=== PATIENT | female | born 1995 | race Two or more races ===

== ENCOUNTER 2021-01-25 00:06 | Inpatient (IN) | payer MEDICAID, OTHER ==
[2021-01-25] MEDS ORDERED: Nalbuphine 10 MG/1 ML Vial IVPUSH PRN (03:07)
[2021-01-25] MEDS ORDERED: Sodium Chloride 0.9% 10 ML Syringe FLUSH PRN (03:07)
[2021-01-25] MEDS ORDERED: Ondansetron 4 MG/2 ML SDV IVPUSH PRN (03:07)
[2021-01-25] MEDS ORDERED: Oxytocin/Lactated Ringers 10 UNIT/1,000 ML BAG IV SCH ×3 (03:15→07:45)
[2021-01-25] MEDS ORDERED: Terbutaline 1 MG/ML SDV ONE (07:12)
[2021-01-25] MEDS ORDERED: Terbutaline 1 MG/ML SDV SUBCUT ONE (07:13)
[2021-01-25] MEDS: Lactated Ringers 1,000 ML IV SCH ×2 (07:36→12:43)
[2021-01-25] MEDS ORDERED: diphenhydrAMINE 50 MG/ML SDV IVPUSH PRN (07:42)
[2021-01-25] MEDS ORDERED: ePHEDrine 50 MG/ML SDV IVPUSH PRN (07:42)
[2021-01-25] MEDS ORDERED: Bupivacaine/fentaNYL/NS 100 ML Bag EPIDUR PRN (07:42)
[2021-01-25] MEDS ORDERED: fentaNYL 100 MCG/2 ML SDV EPIDUR PRN (07:42)
--- NOTE | 2021-01-25 07:54 | PCM.PRNOTE ---
- Free Text/Narrative Note: PROCEDURE NOTE Procedure Date: 01/25/2021 Pre-operative Diagnosis: 1. at 39 0/7 wks 2. Transverse presentation 3. Gestational HTN Post-operative Diagnosis: 1. As above s/p successful external cephalic version Anesthesia: None Description of Operation/Procedure: The risks, benefits, indications, potential complications, and alternatives were explained to the patient and informed consent obtained. Patient was placed in the supine position. Ultrasound was used to confirm complete breech presentation and appropriate JEAN PIERRE. Terbutaline 0.25 mg subcutaneous was given. Hands were placed on the patient's abdomen. The breech was elevated out of the pelvis while counterclockwise traction was applied to the head. Ultrasound confirmed cephalic presentation as well as cardiac activity. The patient tolerated the procedure well. Complications: The patient tolerated the procedure well and no complications were noted. Plan: 1. Begin IOL for gestational HTN. Pitocin with AROM as able 2. Sign out patient to Dr. Marcellus Puente MD
--- NOTE | 2021-01-25 08:10 | PCM.LDHP ---
<So Breaux - Last Filed: 01/25/21 08:45> L&D History of Present Illness - General Date of Service: 01/25/21 Admit Problem/Dx: Patient Status Order with Admit Dx/Problem 01/25/21 00:22 Patient Status [ADT] Routine 01/25/21 03:07 Patient Status [ADT] Routine Admission Diagnosis/Problem Admission Diagnosis/Problem Source of Information: Patient History Limitations: Reports: No Limitations - History of Present Illness Introduction:: Patient is a 25 year old GBS - O+ x 1 who present today at 39-0 weeks gestational age (MIESHA 02/01/21) for evaluation of labor. She reports some contractions but denies vaginal bleeding or leaking of fluid. She reports good movement. Present Illness Comments:: Lynne Lau is a GBS- O+ 25 year old x 1 female at 39-0 weeks gestation age (MIESHA 02/01/21) by 19 week US and LMP who presents today for evaluation of labor. Patient reports a history of seasonal allergies. Patient received routine care with Dr. Mace. No other known complications during her . Her blood pressures remained elevated (130s/90s) during her OB Triage and the decision was to admit for induction/augmentation of labor. She denied any headaches or changes in her vision. She received Tdap vaccine 11/17/20. She declined Flu Vaccine OBGYN History 04/13/15: of male infant weighing 6 lbs 4ounces at 40 weeks - Jonathon Jr 04/30/16: of male weighing 6 lbs 8 ounces at 40 weeks - Denis 05/03/18: NSD of female weighing 6 lbs 4 ounces at 40 weeks - Valerie G4: current labs: Blood type:O+ Antibody screen: Negative Rubella status: Immune Hepatitis B surface antigen: negative RPR: negative HIV: negative Gonorrhea: Negative Chlamydia: negative Anatomy US: Harvey IUP with normal growth, JEAN PIERRE, placental location and anatomy One hour glucose tolerance test: 139, Three hour: 97, 129, 123, 107 Second trimester hemoglobin: 13.3 Platelets: 257,000 GBS status: negative - Related Data Allergies/Adverse Reactions: Allergies Allergy/AdvReac Type Severity Reaction Status Date / Time No Known Allergies Allergy Verified 01/25/21 00:56 Past Medical History HEENT History: Reports: Allergic Rhinitis [employer] History: Reports: Social & Family History - Tobacco Use Tobacco Use Status *Q: Never Tobacco User Second Hand Smoke Exposure: No - Alcohol Use Alcohol Use History: No - Recreational Drug Use Recreational Drug Use: No H&P Review of Systems - Review of Systems: Review Of Systems: See Below General: Reports: No Symptoms HEENT: Reports: No Symptoms Pulmonary: Reports: No Symptoms Cardiovascular: Reports: No Symptoms Gastrointestinal: Reports: No Symptoms Genitourinary: Reports: No Symptoms Musculoskeletal: Reports: No Symptoms Skin: Reports: No Symptoms Psychiatric: Reports: No Symptoms Neurological: Reports: No Symptoms L&D Exam - Exam Exam: See Below - Vital Signs Vital Signs: Last Vital Signs Temp 98.7 F 01/25/21 03:07 Pulse 93 01/25/21 03:07 Resp 16 01/25/21 03:07 BP 136/91 H 01/25/21 03:07 Pulse Ox Weight: 211 lb - OB Specific Contraction Intensity: Mild Movement: Active Heart Tones: Present Presentation: Oblique - Temple Score Temple Score Cervix Position: Posterior Temple Score Dilation: 1-2 cm - Exam General: Alert, Oriented HEENT: Conjunctiva Clear, EOMI Lungs: Clear to Auscultation, Normal Respiratory Effort Cardiovascular: Regular Rate, Regular Rhythm GI/Abdominal Exam: Normal Bowel Sounds, Soft, Non-Tender Extremities: Normal Inspection, No Pedal Edema, Normal Capillary Refill Skin: Warm, Dry, Intact Psychiatric: Alert, Normal Affect, Normal Mood - Patient Data Lab Results Last 24 hrs: Laboratory Results - last 24 hr 01/25/21 01/25/21 01/25/21 Range/Units 03:28 03:28 04:00 WBC 6.84 (3.98-10.04) K/mm3 RBC 4.16 (3.98-5.22) M/mm3 Hgb 10.9 L (11.2-15.7) gm/dl Hct 34.2 (34.1-44.9) % MCV 82.2 (79.4-94.8) fl MCH 26.2 (25.6-32.2) pg MCHC 31.9 L (32.2-35.5) g/dl RDW Std Deviation 44.3 (36.4-46.3) fL Plt Count 211 (182-369) K/mm3 MPV 10.7 (9.4-12.3) fl Neut % (Auto) 65.6 (34.0-71.1) % Lymph % (Auto) 28.2 (19.3-51.7) % Stone % (Auto) 5.6 (4.7-12.5) % Eos % (Auto) 0.4 L (0.7-5.8) Baso % (Auto) 0.1 (0.1-1.2) % Neut # (Auto) 4.48 (1.56-6.13) K/mm3 Lymph # (Auto) 1.93 (1.18-3.74) K/mm3 Stone # (Auto) 0.38 H (0.24-0.36) K/mm3 Eos # (Auto) 0.03 L (0.04-0.36) K/mm3 Baso # (Auto) 0.01 (0.01-0.08) K/mm3 AST 15 (15-37) U/L ALT 17 (14-59) U/L Ur Random Creatinine (30.0-125.0) mg/dL U Random Total Protein (0.0-11.8) mg/dL Protein/Creatinin Ratio (0-149) mg/g SARS-CoV-2 RNA (CARL) Negative (NEGATIVE) 01/25/21 Range/Units 04:00 WBC (3.98-10.04) K/mm3 RBC (3.98-5.22) M/mm3 Hgb (11.2-15.7) gm/dl Hct (34.1-44.9) % MCV (79.4-94.8) fl MCH (25.6-32.2) pg MCHC (32.2-35.5) g/dl RDW Std Deviation (36.4-46.3) fL Plt Count (182-369) K/mm3 MPV (9.4-12.3) fl Neut % (Auto) (34.0-71.1) % Lymph % (Auto) (19.3-51.7) % Stone % (Auto) (4.7-12.5) % Eos % (Auto) (0.7-5.8) Baso % (Auto) (0.1-1.2) % Neut # (Auto) (1.56-6.13) K/mm3 Lymph # (Auto) (1.18-3.74) K/mm3 Stone # (Auto) (0.24-0.36) K/mm3 Eos # (Auto) (0.04-0.36) K/mm3 Baso # (Auto) (0.01-0.08) K/mm3 AST (15-37) U/L ALT (14-59) U/L Ur Random Creatinine 163.6 H (30.0-125.0) mg/dL U Random Total Protein 45.9 H (0.0-11.8) mg/dL Protein/Creatinin Ratio 280.6 H (0-149) mg/g SARS-CoV-2 RNA (CARL) (NEGATIVE) Result Diagrams: 01/25/21 03:28 - Problem List (1) 39 weeks gestation of SNOMED Code(s): 00731531 ICD Code: Z3A.39 - 39 WEEKS GESTATION OF Status: Acute Current Visit: Yes (2) Elevated blood pressure affecting in third trimester, antepartum SNOMED Code(s): 55398972, 64994714, 340868480 ICD Code: O16.3 - UNSPECIFIED MATERNAL HYPERTENSION, THIRD TRIMESTER Status: Acute Current Visit: Yes (3) Breech presentation SNOMED Code(s): 6606615 ICD Code: O32.1XX0 - MATERNAL CARE FOR BREECH PRESENTATION, UNSP Status: Acute Current Visit: Yes Problem List Initiated/Reviewed/Updated: Yes Orders Last 24hrs: Active Orders 24 hr Category Date Time Status Patient Status [ADT] Routine ADT 01/25/21 03:07 Active Activity as Tolerated [RC] PFP Care 01/25/21 03:07 Active Communication Order [RC] ASDIRECTED Care 01/25/21 03:07 Active Communication Order [RC] ASDIRECTED Care 01/25/21 07:42 Active Cooling Warming Measures [RC] ASDIRECTED Care 01/25/21 07:42 Active Notify Provider [RC] ASDIRECTED Care 01/25/21 07:42 Active Notify Provider [RC] ASDIRECTED Care 01/25/21 07:43 Active Notify Provider [RC] PFP Care 01/25/21 03:07 Active Notify Provider [RC] PRN Care 01/25/21 03:07 Active Oxygen Therapy [RC] ASDIRECTED Care 01/25/21 07:42 Active Peripheral IV Care [RC] . DIRECTED Care 01/25/21 03:08 Active Pulse Oximetry [RC] ASDIRECTED Care 01/25/21 07:42 Active Pump Management, Intrathecal [RC] ASDIRECTED Care 01/25/21 03:08 Active Vital Signs [RC] PER UNIT ROUTINE Care 01/25/21 03:07 Active Vital Signs [RC] Q1H Care 01/25/21 07:42 Active Regular Diet [DIET] Diet 01/25/21 Breakfast Active RAPID PLASMA REAGIN,RPR [CHEM] Routine Lab 01/25/21 03:28 Received Bupivacaine/fentaNYL/NS [fentaNYL/Bupivacaine/NS 2 MCG- Med 01/25/21 07:42 Active 0.125% 100 ML] 100 ml EPIDUR ASDIRECTED PRN Lactated Ringers [Ringers, Lactated] 1,000 ml Med 01/25/21 03:15 Active IV ASDIRECTED Nalbuphine [Nubain] Med 01/25/21 03:07 Active 10 mg IVPUSH Q2H PRN Ondansetron [Zofran] Med 01/25/21 03:07 Active 4 mg IVPUSH Q4H PRN Oxytocin/Lactated Ringers [Pitocin in LR 10 Units/1,000 Med 01/25/21 03:15 Active ML] 10 unit in 1,000 ml IV .CONTINUOUS Oxytocin/Lactated Ringers [Pitocin in LR 10 Units/1,000 Med 01/25/21 03:15 Active ML] 10 unit in 1,000 ml IV TITRATE Oxytocin/Lactated Ringers [Pitocin in LR 10 Units/1,000 Med 01/25/21 07:45 Active ML] 10 unit in 1,000 ml IV TITRATE Sodium Chloride 0.9% [Saline Flush] Med 01/25/21 03:07 Active 10 ml FLUSH ASDIRECTED PRN diphenhydrAMINE [Benadryl] Med 01/25/21 07:42 Active 25 mg IVPUSH Q6H PRN ePHEDrine [ePHEDrine sulfate] Med 01/25/21 07:42 Active 5 mg IVPUSH ASDIRECTED PRN fentaNYL [Sublimaze] Med 01/25/21 07:42 Active 100 mcg EPIDUR Q3H PRN Electronic Heart Tones Ext w TOCO [WOMSER] Oth 01/25/21 03:07 Ordered Routine Electronic Heart Tones Internal [WOMSER] Per Unit Oth 01/25/21 03:07 Ordered Routine PIH Panel [OM.PC] Stat Oth 01/25/21 03:07 Ordered Peripheral IV Insertion Adult [OM.PC] Routine Oth 01/25/21 03:07 Ordered Resuscitation Status Routine Resus Stat 01/25/21 00:22 Ordered Medication Orders Diphenhydramine HCl (Diphenhydramine 50 Mg/Ml Sdv) 25 mg IVPUSH Q6H PRN PRN Reason: pruritis Ephedrine Sulfate (Ephedrine 50 Mg/Ml Sdv) 5 mg IVPUSH ASDIRECTED PRN PRN Reason: Hypotension Fentanyl (Fentanyl 100 Mcg/2 Ml Sdv) 100 mcg EPIDUR Q3H PRN PRN Reason: Pain Fentanyl/Bupivacaine HCl (Bupivacaine/Fentanyl/Ns 100 Ml Bag) 100 ml EPIDUR ASDIRECTED PRN PRN Reason: Pain Lactated Ringer's (Ringers, Lactated) 1,000 mls @ 100 mls/hr IV ASDIRECTED ANMOL Last Admin: 01/25/21 07:36 Dose: 100 mls/hr Documented by: GLADYS Oxytocin/Lactated Ringer's (Pitocin In Lr 10 Units/1,000 Ml) 10 unit in 1,000 mls @ 500 mls/hr IV .CONTINUOUS ANMOL Oxytocin/Lactated Ringer's (Pitocin In Lr 10 Units/1,000 Ml) 10 unit in 1,000 mls @ 12 mls/hr IV TITRATE ANMOL; Protocol Last Titration: 01/25/21 08:00 Dose: 4 munits/min, 24 mls/hr Documented by: Admin: 01/25/21 07:37 Dose: 2 munits/min, 12 mls/hr Documented by: GLADYS Oxytocin/Lactated Ringer's (Pitocin In Lr 10 Units/1,000 Ml) 10 unit in 1,000 mls @ 12 mls/hr IV TITRATE ANMOL; Protocol Nalbuphine HCl (Nalbuphine 10 Mg/1 Ml Vial) 10 mg IVPUSH Q2H PRN PRN Reason: Pain Ondansetron HCl (Ondansetron 4 Mg/2 Ml Sdv) 4 mg IVPUSH Q4H PRN PRN Reason: Nausea/Vomiting Sodium Chloride (Sodium Chloride 0.9% 10 Ml Syringe) 10 ml FLUSH ASDIRECTED PRN PRN Reason: Keep Vein Open Assessment/Plan Comment:: 25 year old at 39-0 weeks gestational age who presented for evaluation of labor and found to have elevated blood pressures and breech presentation. 1. O+ with negative antibody screen 2. Rubella Immune 3. GBS negative 6. Induction of labor with Pitocin, augmentation as indicated. Dr. Germain to AROM. 5. External cephalic version for oblique presentation to be done by Dr. Puente 7. Continuous monitoring 7. Monitor blood pressures, patient denies headache or changes in vision. BP has remained 130s/90s 7. Small amounts of regular diet 8. Does not desire an Epidural 9. Activity as tolerated 10. Anticipate vaginal delivery unless otherwise indicated 11. Plans to breastfeed <Lashell Puente - Last Filed: 01/25/21 12:23> L&D History of Present Illness - General Admit Problem/Dx: Patient Status Order with Admit Dx/Problem 01/25/21 00:22 Patient Status [ADT] Routine 01/25/21 03:07 Patient Status [ADT] Routine Admission Diagnosis/Problem Admission Diagnosis/Problem L&D Exam - Vital Signs Vital Signs: Last Vital Signs Temp 37.1 C 01/25/21 03:07 Pulse 93 01/25/21 03:07 Resp 16 01/25/21 03:07 BP 136/91 H 01/25/21 03:07 Pulse Ox - Patient Data Result Diagrams: 01/25/21 03:28 - Problem List (1) 39 weeks gestation of SNOMED Code(s): 50293201 ICD Code: Z3A.39 - 39 WEEKS GESTATION OF Status: Acute Current Visit: Yes (2) Breech presentation SNOMED Code(s): 7541432 ICD Code: O32.1XX0 - MATERNAL CARE FOR BREECH PRESENTATION, UNSP Status: Acute Current Visit: Yes Qualifiers: Fetus number: single or unspecified fetus Qualified Code(s): O32.1XX0 - Maternal care for breech presentation, not applicable or unspecified (3) Elevated blood pressure affecting in third trimester, antepartum SNOMED Code(s): 88966713, 04042927, 921601290 ICD Code: O16.3 - UNSPECIFIED MATERNAL HYPERTENSION, THIRD TRIMESTER Status: Acute Current Visit: Yes Problem List Initiated/Reviewed/Updated: Yes Assessment/Plan Comment:: I agree with the history and physical as documented above. woman at 39 0/7 wks presented with irregular contractions/early labor. No SVE change on exam, but with findings of mild range BP's requiring admission. Labs done and WNL. Further evaluation by MD noted transverse presentation. Reviewed with patient given only early labor and current presentation feel she would have high success with attempted ECV. Reviewed risks and benefits of procedure. She did desire trial. This was successful. See separate procedure note. Will now start IOL for gestational HTN. Pitocin and AROM when able. Patient to be signed out to care of Dr. Germain at this time. Lashell Puente MD <[place] Germain - Last Filed: 01/25/21 12:40> L&D History of Present Illness - General Admit Problem/Dx: Patient Status Order with Admit Dx/Problem 01/25/21 00:22 Patient Status [ADT] Routine 01/25/21 03:07 Patient Status [ADT] Routine Admission Diagnosis/Problem Admission Diagnosis/Problem L&D Exam - Vital Signs Vital Signs: Last Vital Signs Temp 98.7 F 01/25/21 03:07 Pulse 93 01/25/21 03:07 Resp 16 01/25/21 03:07 BP 136/91 H 01/25/21 03:07 Pulse Ox - Patient Data Lab Results Last 24 hrs: Laboratory Results - last 24 hr 01/25/21 01/25/21 01/25/21 Range/Units 03:28 03:28 04:00 WBC 6.84 (3.98-10.04) K/mm3 RBC 4.16 (3.98-5.22) M/mm3 Hgb 10.9 L (11.2-15.7) gm/dl Hct 34.2 (34.1-44.9) % MCV 82.2 (79.4-94.8) fl MCH 26.2 (25.6-32.2) pg MCHC 31.9 L (32.2-35.5) g/dl RDW Std Deviation 44.3 (36.4-46.3) fL Plt Count 211 (182-369) K/mm3 MPV 10.7 (9.4-12.3) fl Neut % (Auto) 65.6 (34.0-71.1) % Lymph % (Auto) 28.2 (19.3-51.7) % Stone % (Auto) 5.6 (4.7-12.5) % Eos % (Auto) 0.4 L (0.7-5.8) Baso % (Auto) 0.1 (0.1-1.2) % Neut # (Auto) 4.48 (1.56-6.13) K/mm3 Lymph # (Auto) 1.93 (1.18-3.74) K/mm3 Stone # (Auto) 0.38 H (0.24-0.36) K/mm3 Eos # (Auto) 0.03 L (0.04-0.36) K/mm3 Baso # (Auto) 0.01 (0.01-0.08) K/mm3 AST 15 (15-37) U/L ALT 17 (14-59) U/L Ur Random Creatinine (30.0-125.0) mg/dL U Random Total Protein (0.0-11.8) mg/dL Protein/Creatinin Ratio (0-149) mg/g SARS-CoV-2 RNA (CARL) Negative (NEGATIVE) 01/25/21 Range/Units 04:00 WBC (3.98-10.04) K/mm3 RBC (3.98-5.22) M/mm3 Hgb (11.2-15.7) gm/dl Hct (34.1-44.9) % MCV (79.4-94.8) fl MCH (25.6-32.2) pg MCHC (32.2-35.5) g/dl RDW Std Deviation (36.4-46.3) fL Plt Count (182-369) K/mm3 MPV (9.4-12.3) fl Neut % (Auto) (34.0-71.1) % Lymph % (Auto) (19.3-51.7) % Stone % (Auto) (4.7-12.5) % Eos % (Auto) (0.7-5.8) Baso % (Auto) (0.1-1.2) % Neut # (Auto) (1.56-6.13) K/mm3 Lymph # (Auto) (1.18-3.74) K/mm3 Stone # (Auto) (0.24-0.36) K/mm3 Eos # (Auto) (0.04-0.36) K/mm3 Baso # (Auto) (0.01-0.08) K/mm3 AST (15-37) U/L ALT (14-59) U/L Ur Random Creatinine 163.6 H (30.0-125.0) mg/dL U Random Total Protein 45.9 H (0.0-11.8) mg/dL Protein/Creatinin Ratio 280.6 H (0-149) mg/g SARS-CoV-2 RNA (CARL) (NEGATIVE) Result Diagrams: 01/25/21 03:28 - Problem List (1) 39 weeks gestation of SNOMED Code(s): 03172889 ICD Code: Z3A.39 - 39 WEEKS GESTATION OF Status: Acute Current Visit: Yes Problem List Initiated/Reviewed/Updated: No Orders Last 24hrs: Active Orders 24 hr Category Date Time Status Patient Status [ADT] Routine ADT 01/25/21 03:07 Active Activity as Tolerated [RC] PFP Care 01/25/21 03:07 Active Communication Order [RC] ASDIRECTED Care 01/25/21 03:07 Active Communication Order [RC] ASDIRECTED Care 01/25/21 07:42 Active Cooling Warming Measures [RC] ASDIRECTED Care 01/25/21 07:42 Active Notify Provider [RC] ASDIRECTED Care 01/25/21 07:42 Active Notify Provider [RC] ASDIRECTED Care 01/25/21 07:43 Active Notify Provider [RC] PFP Care 01/25/21 03:07 Active Notify Provider [RC] PRN Care 01/25/21 03:07 Active Oxygen Therapy [RC] ASDIRECTED Care 01/25/21 07:42 Active Peripheral IV Care [RC] . DIRECTED Care 01/25/21 03:08 Active Pulse Oximetry [RC] ASDIRECTED Care 01/25/21 07:42 Active Pump Management, Intrathecal [RC] ASDIRECTED Care 01/25/21 03:08 Active Vital Signs [RC] PER UNIT ROUTINE Care 01/25/21 03:07 Active Regular Diet [DIET] Diet 01/25/21 Breakfast Active RAPID PLASMA REAGIN,RPR [CHEM] Routine Lab 01/25/21 03:28 Received Bupivacaine/fentaNYL/NS [fentaNYL/Bupivacaine/NS 2 MCG- Med 01/25/21 07:42 Active 0.125% 100 ML] 100 ml EPIDUR ASDIRECTED PRN Lactated Ringers [Ringers, Lactated] 1,000 ml Med 01/25/21 03:15 Active IV ASDIRECTED Nalbuphine [Nubain] Med 01/25/21 03:07 Active 10 mg IVPUSH Q2H PRN Ondansetron [Zofran] Med 01/25/21 03:07 Active 4 mg IVPUSH Q4H PRN Oxytocin/Lactated Ringers [Pitocin in LR 10 Units/1,000 Med 01/25/21 03:15 Active ML] 10 unit in 1,000 ml IV .CONTINUOUS Oxytocin/Lactated Ringers [Pitocin in LR 10 Units/1,000 Med 01/25/21 03:15 Active ML] 10 unit in 1,000 ml IV TITRATE Oxytocin/Lactated Ringers [Pitocin in LR 10 Units/1,000 Med 01/25/21 07:45 Active ML] 10 unit in 1,000 ml IV TITRATE Sodium Chloride 0.9% [Saline Flush] Med 01/25/21 03:07 Active 10 ml FLUSH ASDIRECTED PRN diphenhydrAMINE [Benadryl] Med 01/25/21 07:42 Active 25 mg IVPUSH Q6H PRN ePHEDrine [ePHEDrine sulfate] Med 01/25/21 07:42 Active 5 mg IVPUSH ASDIRECTED PRN fentaNYL [Sublimaze] Med 01/25/21 07:42 Active 100 mcg EPIDUR Q3H PRN Electronic Heart Tones Ext w TOCO [WOMSER] Oth 01/25/21 03:07 Ordered Routine Electronic Heart Tones Internal [WOMSER] Per Unit Oth 01/25/21 03:07 Ordered Routine PIH Panel [OM.PC] Stat Oth 01/25/21 03:07 Ordered Peripheral IV Insertion Adult [OM.PC] Routine Oth 01/25/21 03:07 Ordered Resuscitation Status Routine Resus Stat 01/25/21 00:22 Ordered Medication Orders Diphenhydramine HCl (Diphenhydramine 50 Mg/Ml Sdv) 25 mg IVPUSH Q6H PRN PRN Reason: pruritis Ephedrine Sulfate (Ephedrine 50 Mg/Ml Sdv) 5 mg IVPUSH ASDIRECTED PRN PRN Reason: Hypotension Fentanyl (Fentanyl 100 Mcg/2 Ml Sdv) 100 mcg EPIDUR Q3H PRN PRN Reason: Pain Fentanyl/Bupivacaine HCl (Bupivacaine/Fentanyl/Ns 100 Ml Bag) 100 ml EPIDUR ASDIRECTED PRN PRN Reason: Pain Lactated Ringer's (Ringers, Lactated) 1,000 mls @ 100 mls/hr IV ASDIRECTED ANMOL Last Admin: 01/25/21 07:36 Dose: 100 mls/hr Documented by: GLADYS Oxytocin/Lactated Ringer's (Pitocin In Lr 10 Units/1,000 Ml) 10 unit in 1,000 mls @ 500 mls/hr IV .CONTINUOUS ANMOL Oxytocin/Lactated Ringer's (Pitocin In Lr 10 Units/1,000 Ml) 10 unit in 1,000 mls @ 12 mls/hr IV TITRATE ANMOL; Protocol Last Titration: 01/25/21 12:32 Dose: 14 munits/min, 84 mls/hr Documented by: Titration: 01/25/21 11:49 Dose: 15 munits/min, 90 mls/hr Documented by: Titration: 01/25/21 11:14 Dose: 13 munits/min, 78 mls/hr Documented by: Titration: 01/25/21 10:48 Dose: 11 munits/min, 66 mls/hr Documented by: Titration: 01/25/21 10:15 Dose: 9 munits/min, 54 mls/hr Documented by: Titration: 01/25/21 09:33 Dose: 7 munits/min, 42 mls/hr Documented by: Titration: 01/25/21 08:25 Dose: 6 munits/min, 36 mls/hr Documented by: Titration: 01/25/21 08:00 Dose: 4 munits/min, 24 mls/hr Documented by: Admin: 01/25/21 07:37 Dose: 2 munits/min, 12 mls/hr Documented by: GLADYS Oxytocin/Lactated Ringer's (Pitocin In Lr 10 Units/1,000 Ml) 10 unit in 1,000 mls @ 12 mls/hr IV TITRATE ANMOL; Protocol Nalbuphine HCl (Nalbuphine 10 Mg/1 Ml Vial) 10 mg IVPUSH Q2H PRN PRN Reason: Pain Ondansetron HCl (Ondansetron 4 Mg/2 Ml Sdv) 4 mg IVPUSH Q4H PRN PRN Reason: Nausea/Vomiting Sodium Chloride (Sodium Chloride 0.9% 10 Ml Syringe) 10 ml FLUSH ASDIRECTED PRN PRN Reason: Keep Vein Open Assessment/Plan Comment:: Patient seen and examined by me and discussed with student.
--- NOTE | 2021-01-25 08:34 | PCM.SN.2 ---
- Free Text/Narrative Note: Bedside ultrasound confirmed cephalic presentation. At 820 hours attempted amniotomy not successful cervix is 2 cm dilated cephalic presentation again confirmed after attempted amniotomy. Heart tones category 1 continue Pitocin. GBS negative. Will attempt amniotomy after patient has been on Pitocin for another hour or more.
[2021-01-25] MEDS ORDERED: Lidocaine 1% 50 ML MDV ONE (08:47)
--- NOTE | 2021-01-25 12:43 | PCM.SN.2 ---
- Free Text/Narrative Note: At 1012 attemped amniotomy, unsuccessful, cephalic presentation, 4, 50, soft, mid-position, -1 station
--- NOTE | 2021-01-25 13:32 | PCM.DEL ---
L & D Note - General Info Date of Service: 01/25/21 Mother's Due Date: 02/01/21 - Delivery Note Labor: Spontaneous, Augmented by ARM, Augmented by Oxytocin Delivery Outcome: Livebirth (Mild liveborn 01/25/2021 at 1310 hrs. ADI Apgars 8/9. Weight 3430 g/1 pounds 9.0 ounces of anesthesia, no lacerations.) Infant Delivery Method: Spontaneous Vaginal Delivery-Single Delivery Mode: Spontaneous Presentation: Oblique Nuchal Cord: None Prep: Povidone-Iodine (Betadine Anesthesia Type: None Amniotic Fluid Description: Clear Episiotomy Type: None Laceration: None Placenta: Intact, Spontaneous (Spontaneous delivery of the placenta 01/25/2021 at 1319 hrs. spontaneous eccentric cord insertion no missing cotyledons membranes examined no missing membrane remnants.) Estimated Blood Loss: 50 Resuscitation Needed: No [place]: Suctioned, Bulb Syringe, Stimulated, Warmed, [place] Used, Warmer Used Provider: [place] Germain Score 1 min: 8 Score 5 min: 9 Induction Criteria - Temple Score Temple Score Dilation: 1-2 cm Temple Score Effacement: 40-50% Temple Score Infant's Station: -1 ,0 Temple Score Consistency: Soft Temple Score Cervix Position: Posterior Temple Score Total: 6 Temple Score Presenting Part: Reports: Cephalic - Augmentation Estimated Pelvis: Reports: Adequate Weight Estimated:: Reports: AGA Reassuring Monitoring Strip: Yes Absence of Tachy Systole: Yes - General Info Date of Service: 01/25/21 Functional Status: Reports: Pain Controlled - Review of Systems General: Reports: No Symptoms HEENT: Reports: No Symptoms Pulmonary: Reports: No Symptoms Cardiovascular: Reports: No Symptoms Gastrointestinal: Reports: No Symptoms Genitourinary: Reports: No Symptoms Musculoskeletal: Reports: No Symptoms Skin: Reports: No Symptoms Neurological: Reports: No Symptoms Psychiatric: Reports: No Symptoms - Patient Data Vitals - Most Recent: Last Vital Signs Temp 98.7 F 01/25/21 03:07 Pulse 93 01/25/21 03:07 Resp 16 01/25/21 03:07 BP 136/91 H 01/25/21 03:07 Pulse Ox Weight - Most Recent: 211 lb Lab Results Last 24 Hours: Laboratory Results - last 24 hr 01/25/21 01/25/21 01/25/21 Range/Units 03:28 03:28 04:00 WBC 6.84 (3.98-10.04) K/mm3 RBC 4.16 (3.98-5.22) M/mm3 Hgb 10.9 L (11.2-15.7) gm/dl Hct 34.2 (34.1-44.9) % MCV 82.2 (79.4-94.8) fl MCH 26.2 (25.6-32.2) pg MCHC 31.9 L (32.2-35.5) g/dl RDW Std Deviation 44.3 (36.4-46.3) fL Plt Count 211 (182-369) K/mm3 MPV 10.7 (9.4-12.3) fl Neut % (Auto) 65.6 (34.0-71.1) % Lymph % (Auto) 28.2 (19.3-51.7) % [place] % (Auto) 5.6 (4.7-12.5) % Eos % (Auto) 0.4 L (0.7-5.8) Baso % (Auto) 0.1 (0.1-1.2) % Neut # (Auto) 4.48 (1.56-6.13) K/mm3 Lymph # (Auto) 1.93 (1.18-3.74) K/mm3 [place] # (Auto) 0.38 H (0.24-0.36) K/mm3 Eos # (Auto) 0.03 L (0.04-0.36) K/mm3 Baso # (Auto) 0.01 (0.01-0.08) K/mm3 AST 15 (15-37) U/L ALT 17 (14-59) U/L Ur Random Creatinine (30.0-125.0) mg/dL U Random Total Protein (0.0-11.8) mg/dL Protein/Creatinin Ratio (0-149) mg/g SARS-CoV-2 RNA (CARL) Negative (NEGATIVE) 01/25/21 Range/Units 04:00 WBC (3.98-10.04) K/mm3 RBC (3.98-5.22) M/mm3 Hgb (11.2-15.7) gm/dl Hct (34.1-44.9) % MCV (79.4-94.8) fl MCH (25.6-32.2) pg MCHC (32.2-35.5) g/dl RDW Std Deviation (36.4-46.3) fL Plt Count (182-369) K/mm3 MPV (9.4-12.3) fl Neut % (Auto) (34.0-71.1) % Lymph % (Auto) (19.3-51.7) % [place] % (Auto) (4.7-12.5) % Eos % (Auto) (0.7-5.8) Baso % (Auto) (0.1-1.2) % Neut # (Auto) (1.56-6.13) K/mm3 Lymph # (Auto) (1.18-3.74) K/mm3 [place] # (Auto) (0.24-0.36) K/mm3 Eos # (Auto) (0.04-0.36) K/mm3 Baso # (Auto) (0.01-0.08) K/mm3 AST (15-37) U/L ALT (14-59) U/L Ur Random Creatinine 163.6 H (30.0-125.0) mg/dL U Random Total Protein 45.9 H (0.0-11.8) mg/dL Protein/Creatinin Ratio 280.6 H (0-149) mg/g SARS-CoV-2 RNA (CARL) (NEGATIVE) Med Orders - Current: Current Medications Diphenhydramine HCl (Diphenhydramine 50 Mg/Ml Sdv) 25 mg IVPUSH Q6H PRN PRN Reason: pruritis Ephedrine Sulfate (Ephedrine 50 Mg/Ml Sdv) 5 mg IVPUSH ASDIRECTED PRN PRN Reason: Hypotension Fentanyl (Fentanyl 100 Mcg/2 Ml Sdv) 100 mcg EPIDUR Q3H PRN PRN Reason: Pain Fentanyl/Bupivacaine HCl (Bupivacaine/Fentanyl/Ns 100 Ml Bag) 100 ml EPIDUR ASDIRECTED PRN PRN Reason: Pain Lactated Ringer's (Ringers, Lactated) 1,000 mls @ 100 mls/hr IV ASDIRECTED [facility] Last Admin: 01/25/21 12:43 Dose: 100 mls/hr Documented by: Oxytocin/Lactated Ringer's (Pitocin In Lr 10 Units/1,000 Ml) 10 unit in 1,000 mls @ 500 mls/hr IV .CONTINUOUS ANMOL Oxytocin/Lactated Ringer's (Pitocin In Lr 10 Units/1,000 Ml) 10 unit in 1,000 mls @ 12 mls/hr IV TITRATE ANMOL; Protocol Last Titration: 01/25/21 12:32 Dose: 14 munits/min, 84 mls/hr Documented by: Oxytocin/Lactated Ringer's (Pitocin In Lr 10 Units/1,000 Ml) 10 unit in 1,000 mls @ 12 mls/hr IV TITRATE ANMOL; Protocol Nalbuphine HCl (Nalbuphine 10 Mg/1 Ml Vial) 10 mg IVPUSH Q2H PRN PRN Reason: Pain Ondansetron HCl (Ondansetron 4 Mg/2 Ml Sdv) 4 mg IVPUSH Q4H PRN PRN Reason: Nausea/Vomiting Sodium Chloride (Sodium Chloride 0.9% 10 Ml Syringe) 10 ml FLUSH ASDIRECTED PRN PRN Reason: Keep Vein Open Discontinued Medications Lidocaine HCl (Lidocaine 1% 50 Ml Mdv) Confirm Administered Dose 50 ml .ROUTE .STK-MED ONE Stop: 01/25/21 08:48 Terbutaline Sulfate (Terbutaline 1 Mg/Ml Sdv) 0.25 mg SUBCUT ONETIME ONE Stop: 01/25/21 07:14 Last Admin: 01/25/21 07:38 Dose: 0.25 mg Documented by: Terbutaline Sulfate (Terbutaline 1 Mg/Ml Sdv) Confirm Administered Dose 1 mg .ROUTE .STK-MED ONE Stop: 01/25/21 07:13 Last Admin: 01/25/21 09:34 Dose: Not Given Documented by: - Exam GI/Abdominal Exam: Soft, Non-Tender (Female) Exam: Normal External Exam Extremities: Normal Inspection, Normal Range of Motion, Non-Tender, No Pedal Edema, Normal Capillary Refill Skin: Warm, Dry, Intact Neurological: No New Focal Deficit Psy/Mental Status: Alert, Normal Affect, Normal Mood - Problem List & Annotations (1) 39 weeks gestation of SNOMED Code(s): 48733095 Code(s): Z3A.39 - 39 WEEKS GESTATION OF Status: Acute Current Visit: Yes (2) Normal delivery at term SNOMED Code(s): 05585805 Code(s): O80 - ENCOUNTER FOR FULL-TERM UNCOMPLICATED DELIVERY Status: Acute Current Visit: Yes - Problem List Review Problem List Initiated/Reviewed/Updated: No - Plan Plan:: Patient seen and examined by me and discussed with student.
[2021-01-25] MEDS ORDERED: Acetaminophen 325 MG Tab PO PRN (14:55)
[2021-01-25] MEDS ORDERED: Benzocaine/Menthol 20%-0.5% Spray 56 GM Canister TOP PRN (14:55)
[2021-01-25] MEDS ORDERED: Witch Hazel Medicated Pads 40/Jar TOP PRN (14:55)
[2021-01-25] MEDS ORDERED: Simethicone 80 MG Tab.Chew PO PRN (14:55)
[2021-01-25] MEDS: Ibuprofen 600 MG Tab PO PRN ×2 (16:41→21:18)
[2021-01-26] MEDS: Ibuprofen 600 MG Tab PO PRN (05:13)
--- NOTE | 2021-01-26 11:10 | PCM.DCSUM1 ---
Discharge Summary - Hospital Course Free Text/Narrative:: [place] [facility] L/D Delivery Note Patient Name: FELICE CHANEY Date of : 89 Patient Status: Inpatient Attending Provider: Lashell Puente Date: 01/25/21 13:26 Initialization Date: 01/25/21 13:26 L & D Note - General Info Date of Service: 01/25/21 Mother's Due Date: 02/01/21 - Delivery Note Labor: Spontaneous, Augmented by ARM, Augmented by Oxytocin Delivery Outcome: Livebirth (Mild liveborn 01/25/2021 at 1310 hrs. ADI Apgars 8/9. Weight 3430 g/1 pounds 9.0 ounces of anesthesia, no lacerations.) Delivery Method: Spontaneous Vaginal Delivery-Single Infant Delivery Mode: Spontaneous Presentation: Oblique Nuchal Cord: None Prep: Povidone-Iodine (Betadine Anesthesia Type: None Amniotic Fluid Description: Clear Episiotomy Type: None Laceration: None Placenta: Intact, Spontaneous (Spontaneous delivery of the placenta 01/25/2021 at 1319 hrs. spontaneous eccentric cord insertion no missing cot yledons membranes examined no missing membrane remnants.) Estimated Blood Loss: 50 Resuscitation Needed: No : Suctioned, Bulb Syringe, Stimulated, Warmed, [place] Used, Warmer Used Provider: [place] Germain Score 1 min: 8 Score 5 min: 9 Induction Criteria - Temple Score Temple Score Dilation: 1-2 cm Temple Score Effacement: 40-50% Temple Score Infant's Station: -1 ,0 Temple Score Consistency: Soft Temple Score Cervix Position: Posterior Temple Score Total: 6 Temple Score Presenting Part: Reports: Cephalic - Augmentation Estimated Pelvis: Reports: Adequate Weight Estimated:: Reports: AGA Reassuring Monitoring Strip: Yes Absence of Tachy Systole: Yes - General Info Date of Service: 01/25/21 Functional Status: Reports: Pain Controlled - Review of Systems General: Reports: No Symptoms HEENT: Reports: No Symptoms Pulmonary: Reports: No Symptoms Cardiovascular: Reports: No Symptoms Gastrointestinal: Reports: No Symptoms Genitourinary: Reports: No Symptoms Musculoskeletal: Reports: No Symptoms Skin: Reports: No Symptoms Neurological: Reports: No Symptoms Psychiatric: Reports: No Symptoms - Patient Data Vitals - Most Recent: Last Vital Signs Temp 98.7 F 01/25/21 03:07 Pulse 93 01/25/21 03:07 Resp 16 01/25/21 03:07 BP 136/91 H 01/25/21 03:07 Pulse Ox Weight - Most Recent: 211 lb Lab Results Last 24 Hours: Laboratory Results - last 24 hr 01/25/21 01/25/21 01/25/21 Range/Units 03:28 03:28 04:00 WBC 6.84 (3.98-10.04) K/mm3 RBC 4.16 (3.98-5.22) M/mm3 Hgb 10.9 L (11.2-15.7) gm/dl Hct 34.2 (34.1-44.9) % MCV 82.2 (79.4-94.8) fl MCH 26.2 (25.6-32.2) pg MCHC 31.9 L (32.2-35.5) g/dl RDW Std Deviation 44.3 (36.4-46.3) fL Plt Count 211 (182-369) K/mm3 MPV 10.7 (9.4-12.3) fl Neut % (Auto) 65.6 (34.0-71.1) % Lymph % (Auto) 28.2 (19.3-51.7) % [place] % (Auto) 5.6 (4.7-12.5) % Eos % (Auto) 0.4 L (0.7-5.8) Baso % (Auto) 0.1 (0.1-1.2) % Neut # (Auto) 4.48 (1.56-6.13) K/mm3 Lymph # (Auto) 1.93 (1.18-3.74) K/mm3 [place] # (Auto) 0.38 H (0.24-0.36) K/mm3 Eos # (Auto) 0.03 L (0.04-0.36) K/mm3 Baso # (Auto) 0.01 (0.01-0.08) K/mm3 AST 15 (15-37) U/L ALT 17 (14-59) U/L Ur Random Creatinine (30.0-125.0) mg/dL U Random Total Protein (0.0-11.8) mg/dL Protein/Creatinin Ratio (0-149) mg/g SARS-CoV-2 RNA (CARL) Negative (NEGATIVE) 01/25/21 Range/Units 04:00 WBC (3.98-10.04) K/mm3 RBC (3.98-5.22) M/mm3 Hgb (11.2-15.7) gm/dl Hct (34.1-44.9) % MCV (79.4-94.8) fl MCH (25.6-32.2) pg MCHC (32.2-35.5) g/dl RDW Std Deviation (36.4-46.3) fL Plt Count (182-369) K/mm3 MPV (9.4-12.3) fl Neut % (Auto) (34.0-71.1) % Lymph % (Auto) (19.3-51.7) % [place] % (Auto) (4.7-12.5) % Eos % (Auto) (0.7-5.8) Baso % (Auto) (0.1-1.2) % Neut # (Auto) (1.56-6.13) K/mm3 Lymph # (Auto) (1.18-3.74) K/mm3 [place] # (Auto) (0.24-0.36) K/mm3 Eos # (Auto) (0.04-0.36) K/mm3 Baso # (Auto) (0.01-0.08) K/mm3 AST (15-37) U/L ALT (14-59) U/L Ur Random Creatinine 163.6 H (30.0-125.0) mg/dL U Random Total Protein 45.9 H (0.0-11.8) mg/dL Protein/Creatinin Ratio 280.6 H (0-149) mg/g SARS-CoV-2 RNA (CARL) (NEGATIVE) Med Orders - Current: Current Medications Diphenhydramine HCl (Diphenhydramine 50 Mg/Ml Sdv) 25 mg IVPUSH Q6H PRN PRN Reason: pruritis Ephedrine Sulfate (Ephedrine 50 Mg/Ml Sdv) 5 mg IVPUSH ASDIRECTED PRN PRN Reason: Hypotension Fentanyl (Fentanyl 100 Mcg/2 Ml Sdv) 100 mcg EPIDUR Q3H PRN PRN Reason: Pain Fentanyl/Bupivacaine HCl (Bupivacaine/Fentanyl/Ns 100 Ml Bag) 100 ml EPIDUR ASDIRECTED PRN PRN Reason: Pain Lactated Ringer's (Ringers, Lactated) 1,000 mls @ 100 mls/hr IV ASDIRECTED ANMOL Last Admin: 01/25/21 12:43 Dose: 100 mls/hr Documented by: Oxytocin/Lactated Ringer's (Pitocin In Lr 10 Units/1,000 Ml) 10 unit in 1,000 mls @ 500 mls/hr IV .CONTINUOUS ANMOL Oxytocin/Lactated Ringer's (Pitocin In Lr 10 Units/1,000 Ml) 10 unit in 1,000 mls @ 12 mls/hr IV TITRATE ANMOL; Protocol Last Titration: 01/25/21 12:32 Dose: 14 munits/min, 84 mls/hr Documented by: Oxytocin/Lactated Ringer's (Pitocin In Lr 10 Units/1,000 Ml) 10 unit in 1,000 mls @ 12 mls/hr IV TITRATE ANMOL; Protocol Nalbuphine HCl (Nalbuphine 10 Mg/1 Ml Vial) 10 mg IVPUSH Q2H PRN PRN Reason: Pain Ondansetron HCl (Ondansetron 4 Mg/2 Ml Sdv) 4 mg IVPUSH Q4H PRN PRN Reason: Nausea/Vomiting Sodium Chloride (Sodium Chloride 0.9% 10 Ml Syringe) 10 ml FLUSH ASDIRECTED PRN PRN Reason: Keep Vein Open Discontinued Medications Lidocaine HCl (Lidocaine 1% 50 Ml Mdv) Confirm Administered Dose 50 ml .ROUTE .STK-MED ONE Stop: 01/25/21 08:48 Terbutaline Sulfate (Terbutaline 1 Mg/Ml Sdv) 0.25 mg SUBCUT ONETIME ONE Stop: 01/25/21 07:14 Last Admin: 01/25/21 07:38 Dose: 0.25 mg Documented by: Terbutaline Sulfate (Terbutaline 1 Mg/Ml Sdv) Confirm Administered Dose 1 mg .ROUTE .STK-MED ONE Stop: 01/25/21 07:13 Last Admin: 01/25/21 09:34 Dose: Not Given Documented by: - Exam GI/Abdominal Exam: Soft, Non-Tender (Female) Exam: Normal External Exam Extremities: Normal Inspection, Normal Range of Motion, Non-Tender, No Pedal Edema, Normal Capillary Refill Skin: Warm, Dry, Intact Neurological: No New Focal Deficit Psy/Mental Status: Alert, Normal Affect, Normal Mood - Problem List & Annotations (1) 39 weeks gestation of SNOMED Code(s): 35053827 Code(s): Z3A.39 - 39 WEEKS GESTATION OF Status: Acute Current Visit: Yes (2) Normal delivery at term SNOMED Code(s): 18315154 Code(s): O80 - ENCOUNTER FOR FULL-TERM UNCOMPLICATED DELIVERY Status: Acute Current Visit: Yes - Problem List Review Problem List Initiated/Reviewed/Updated: No - Plan Plan:: Patient seen and examined by me and discussed with student. HPI Initial Comments: [place] [facility] L/D Delivery Note Patient Name: FELICE CHANEY Date of : 89 Patient Status: Inpatient Attending Provider: Lashell Puente Date: 01/25/21 13:26 Initialization Date: 01/25/21 13:26 L & D Note - General Info Date of Service: 01/25/21 Mother's Due Date: 02/01/21 - Delivery Note Labor: Spontaneous, Augmented by ARM, Augmented by Oxytocin Delivery Outcome: Livebirth (Mild liveborn 01/25/2021 at 1310 hrs. ADI Apgars 8/9. Weight 3430 g/1 pounds 9.0 ounces of anesthesia, no lacerations.) Delivery Method: Spontaneous Vaginal Delivery-Single Delivery Mode: Spontaneous Presentation: Oblique Nuchal Cord: None Prep: Povidone-Iodine (Betadine Anesthesia Type: None Amniotic Fluid Description: Clear Episiotomy Type: None Laceration: None Placenta: Intact, Spontaneous (Spontaneous delivery of the placenta 01/25/2021 at 1319 hrs. spontaneous eccentric cord insertion no missing cotyledons membranes examined no missing membrane remnants.) Estimated Blood Loss: 50 Resuscitation Needed: No : Suctioned, Bulb Syringe, Stimulated, Warmed, [place] Used, Warmer Used Provider: [place] Germain Score 1 min: 8 Score 5 min: 9 Induction Criteria - Temple Score Temple Score Dilation: 1-2 cm Temple Score Effacement: 40-50% Temple Score 's Station: -1 ,0 Temple Score Consistency: Soft Temple Score Cervix Position: Posterior Temple Score Total: 6 Temple Score Presenting Part: Reports: Cephalic - Augmentation Estimated Pelvis: Reports: Adequate Weight Estimated:: Reports: AGA Reassuring Monitoring Strip: Yes Absence of Tachy Systole: Yes - General Info Date of Service: 01/25/21 Functional Status: Reports: Pain Controlled - Review of Systems General: Reports: No Symptoms HEENT: Reports: No Symptoms Pulmonary: Reports: No Symptoms Cardiovascular: Reports: No Symptoms Gastrointestinal: Reports: No Symptoms Genitourinary: Reports: No Symptoms Musculoskeletal: Reports: No Symptoms Skin: Reports: No Symptoms Neurological: Reports: No Symptoms Psychiatric: Reports: No Symptoms - Patient Data Vitals - Most Recent: Last Vital Signs Temp 98.7 F 01/25/21 03:07 Pulse 93 01/25/21 03:07 Resp 16 01/25/21 03:07 BP 136/91 H 01/25/21 03:07 Pulse Ox Weight - Most Recent: 211 lb Lab Results Last 24 Hours: Laboratory Results - last 24 hr 01/25/21 01/25/21 01/25/21 Range/Units 03:28 03:28 04:00 WBC 6.84 (3.98-10.04) K/mm3 RBC 4.16 (3.98-5.22) M/mm3 Hgb 10.9 L (11.2-15.7) gm/dl Hct 34.2 (34.1-44.9) % MCV 82.2 (79.4-94.8) fl MCH 26.2 (25.6-32.2) pg MCHC 31.9 L (32.2-35.5) g/dl RDW Std Deviation 44.3 (36.4-46.3) fL Plt Count 211 (182-369) K/mm3 MPV 10.7 (9.4-12.3) fl Neut % (Auto) 65.6 (34.0-71.1) % Lymph % (Auto) 28.2 (19.3-51.7) % [place] % (Auto) 5.6 (4.7-12.5) % Eos % (Auto) 0.4 L (0.7-5.8) Baso % (Auto) 0.1 (0.1-1.2) % Neut # (Auto) 4.48 (1.56-6.13) K/mm3 Lymph # (Auto) 1.93 (1.18-3.74) K/mm3 [place] # (Auto) 0.38 H (0.24-0.36) K/mm3 Eos # (Auto) 0.03 L (0.04-0.36) K/mm3 Baso # (Auto) 0.01 (0.01-0.08) K/mm3 AST 15 (15-37) U/L ALT 17 (14-59) U/L Ur Random Creatinine (30.0-125.0) mg/dL U Random Total Protein (0.0-11.8) mg/dL Protein/Creatinin Ratio (0-149) mg/g SARS-CoV-2 RNA (CARL) Negative (NEGATIVE) 01/25/21 Range/Units 04:00 WBC (3.98-10.04) K/mm3 RBC (3.98-5.22) M/mm3 Hgb (11.2-15.7) gm/dl Hct (34.1-44.9) % MCV (79.4-94.8) fl MCH (25.6-32.2) pg MCHC (32.2-35.5) g/dl RDW Std Deviation (36.4-46.3) fL Plt Count (182-369) K/mm3 MPV (9.4-12.3) fl Neut % (Auto) (34.0-71.1) % Lymph % (Auto) (19.3-51.7) % [place] % (Auto) (4.7-12.5) % Eos % (Auto) (0.7-5.8) Baso % (Auto) (0.1-1.2) % Neut # (Auto) (1.56-6.13) K/mm3 Lymph # (Auto) (1.18-3.74) K/mm3 [place] # (Auto) (0.24-0.36) K/mm3 Eos # (Auto) (0.04-0.36) K/mm3 Baso # (Auto) (0.01-0.08) K/mm3 AST (15-37) U/L ALT (14-59) U/L Ur Random Creatinine 163.6 H (30.0-125.0) mg/dL U Random Total Protein 45.9 H (0.0-11.8) mg/dL Protein/Creatinin Ratio 280.6 H (0-149) mg/g SARS-CoV-2 RNA (CARL) (NEGATIVE) Med Orders - Current: Current Medications Diphenhydramine HCl (Diphenhydramine 50 Mg/Ml Sdv) 25 mg IVPUSH Q6H PRN PRN Reason: pruritis Ephedrine Sulfate (Ephedrine 50 Mg/Ml Sdv) 5 mg IVPUSH ASDIRECTED PRN PRN Reason: Hypotension Fentanyl (Fentanyl 100 Mcg/2 Ml Sdv) 100 mcg EPIDUR Q3H PRN PRN Reason: Pain Fentanyl/Bupivacaine HCl (Bupivacaine/Fentanyl/Ns 100 Ml Bag) 100 ml EPIDUR ASDIRECTED PRN PRN Reason: Pain Lactated Ringer's (Ringers, Lactated) 1,000 mls @ 100 mls/hr IV ASDIRECTED ANMOL Last Admin: 01/25/21 12:43 Dose: 100 mls/hr Documented by: Oxytocin/Lactated Ringer's (Pitocin In Lr 10 Units/1,000 Ml) 10 unit in 1,000 mls @ 500 mls/hr IV .CONTINUOUS ANMOL Oxytocin/Lactated Ringer's (Pitocin In Lr 10 Units/1,000 Ml) 10 unit in 1,000 mls @ 12 mls/hr IV TITRATE ANMOL; Protocol Last Titration: 01/25/21 12:32 Dose: 14 munits/min, 84 mls/hr Documented by: Oxytocin/Lactated Ringer's (Pitocin In Lr 10 Units/1,000 Ml) 10 unit in 1,000 mls @ 12 mls/hr IV TITRATE ANMOL; Protocol Nalbuphine HCl (Nalbuphine 10 Mg/1 Ml Vial) 10 mg IVPUSH Q2H PRN PRN Reason: Pain Ondansetron HCl (Ondansetron 4 Mg/2 Ml Sdv) 4 mg IVPUSH Q4H PRN PRN Reason: Nausea/Vomiting Sodium Chloride (Sodium Chloride 0.9% 10 Ml Syringe) 10 ml FLUSH ASDIRECTED PRN PRN Reason: Keep Vein Open Discontinued Medications Lidocaine HCl (Lidocaine 1% 50 Ml Mdv) Confirm Administered Dose 50 ml .ROUTE .STK-MED ONE Stop: 01/25/21 08:48 Terbutaline Sulfate (Terbutaline 1 Mg/Ml Sdv) 0.25 mg SUBCUT ONETIME ONE Stop: 01/25/21 07:14 Last Admin: 01/25/21 07:38 Dose: 0.25 mg Documented by: Terbutaline Sulfate (Terbutaline 1 Mg/Ml Sdv) Confirm Administered Dose 1 mg .ROUTE .STK-MED ONE Stop: 01/25/21 07:13 Last Admin: 01/25/21 09:34 Dose: Not Given Documented by: - Exam GI/Abdominal Exam: Soft, Non-Tender (Female) Exam: Normal External Exam Extremities: Normal Inspection, Normal Range of Motion, Non-Tender, No Pedal Edema, Normal Capillary Refill Skin: Warm, Dry, Intact Neurological: No New Focal Deficit Psy/Mental Status: Alert, Normal Affect, Normal Mood - Problem List & Annotations (1) 39 weeks gestation of SNOMED Code(s): 37979360 Code(s): Z3A.39 - 39 WEEKS GESTATION OF Status: Acute Current Visit: Yes (2) Normal delivery at term SNOMED Code(s): 15825127 Code(s): O80 - ENCOUNTER FOR FULL-TERM UNCOMPLICATED DELIVERY Status: Acute Current Visit: Yes - Problem List Review Problem List Initiated/Reviewed/Updated: No - Plan Plan:: Patient seen and examined by me and discussed with student. Brief History: [facility] LIVE . L/D Delivery Note. Patient Name: Stone CHANEY Record Number: [id number]. Date of : [birth year]Patient Status: Inpatient. Attending Provider: Lashell Puentecount Number: [id number]. Date: 01/25/21 13:26Initialization Date: 01/25/21 13:26. L & D Note. - General Info. Date of Service: 01/25/21. Mother's Due Date: 02/01/21. - Delivery Note. Labor: Spontaneous, Augmented by ARM, Augmented by Oxytocin. Delivery Outcome: Livebirth (Mild liveborn 01/25/2021 at 1310 hrs. ADI Apgars 8/9. Weight 3430 g/1 pounds 9.0 ounces of anesthesia, no lacerations.). Infant Delivery Method: Spontaneous Vaginal Delivery-Single. Infant Delivery Mode: Spontaneous. Presentation: Oblique. Nuchal Cord: None. Prep: Povidone-Iodine (Betadine. Anesthesia Type: None. Amniotic Fluid Description: Clear. Episiotomy Type: None. Laceration: None. Placenta: Intact, Spontaneous (Spontaneous delivery of the placenta 01/25/2021 at 1319 hrs. spontaneous eccentric cord insertion no missing cotyledons membranes examined no missing membrane remnants.). Estimated Blood Loss: 50. Resuscitation Needed: No. [place]: Suctioned, Bulb Syringe, Stimulated, Warmed, [place] Used, Warmer Used. Provider: Montana Germain. Score 1 min: 8. Score 5 min: 9. Induction Criteria. - Temple Score. Temple Score Dilation: 1-2 cm. Temple Score Effacement: 40-50%. Temple Score Infant's Station: -1 ,0. Temple Score Consistency: Soft. Temple Score Cervix Position: Posterior. Temple Score Total: 6. Temple Score Presenting Part: Reports: Cephalic. - Augmentation. Estimated Pelvis: Reports: Adequate. Weight Estimated:: Reports: AGA. Reassuring Monitoring Strip: Yes. Absence of Tachy Systole: Yes. - General Info. Date of Service: 01/25/21. Functional Status: Reports: Pain Controlled. - Review of Systems. General: Reports: No Symptoms. HEENT: Reports: No Symptoms. Pulmonary: Reports: No Symptoms. Cardiovascular: Reports: No Symptoms. Gastrointestinal: Reports: No Symptoms. Genitourinary: Reports: No Symptoms. Musculoskeletal: Reports: No Symptoms. Skin: Reports: No Symptoms. Neurological: Reports: No Symptoms. Psychiatric: Reports: No Symptoms. - Patient Data. Vitals - Most Recent: Last Vital Signs. Temp 98.7 F 01/25/21 03:07. Pulse 93 01/25/21 03:07. Resp 16 01/25/21 03:07. BP 136/91 H 01/25/21 03:07. Pulse Ox. Weight - Most Recent: 211 lb. Lab Results Last 24 Hours: Laboratory Results - last 24 hr. 01/25/210301/25/21Range/Units. 03:2803:2804:00. WBC 6.84 (3.98-10.04) K/mm3. RBC 4.16 (3.98-5.22) M/mm3. Hgb 10.9 L (11.2-15.7) gm/dl. Hct 34.2 (34.1-44.9) %. MCV 82.2 (79.4-94.8) fl. MCH 26.2 (25.6-32.2) pg. MCHC 31.9 L (32.2-35.5) g/dl. RDW Std Deviation 44.3 (36.4-46.3) fL. Plt Count 211 (182-369) K/mm3. MPV 10.7 (9.4-12.3) fl. Neut % (Auto) 65.6 (34.0-71.1) %. Lymph % (Auto) 28.2 (19.3-51.7) %. [place] % (Auto) 5.6 (4.7-12.5) %. Eos % (Auto) 0.4 L (0.7- 5.8). Baso % (Auto) 0.1 (0.1-1.2) %. Neut # (Auto) 4.48 (1.56-6.13) K/mm3. Lymph # (Auto) 1.93 (1.18-3.74) K/mm3. [place] # (Auto) 0.38 H (0.24-0.36) K/mm3. Eos # (Auto) 0.03 L (0.04-0.36) K/mm3. Baso # (Auto) 0.01 (0.01-0.08) K/mm3. AST 15 (15-37) U/L. ALT 17 (14-59) U/L. Ur Random Creatinine (30.0- 125.0) mg/dL. U Random Total Protein (0.0-11.8) mg/dL. Protein/Creatinin Ratio (0-149) mg/g. SARS-CoV-2 RNA (CARL) Negative (NEGATIVE). 03/15/21Range/Units. 04:00. WBC (3.98-10.04) K/mm3. RBC (3.98-5.22) M/mm3. Hgb (11.2-15.7) gm/dl. Hct (34.1-44.9) %. MCV (79.4-94.8) fl. MCH (25.6- 32.2) pg. MCHC (32.2-35.5) g/dl. RDW Std Deviation (36.4-46.3) fL. Plt Count (182-369) K/mm3. MPV (9.4-12.3) fl. Neut % (Auto) (34.0-71.1) %. Lymph % (Auto) (19.3-51.7) %. [place] % (Auto) (4.7-12.5) %. Eos % (Auto) (0.7- 5.8). Baso % (Auto) (0.1-1.2) %. Neut # (Auto) (1.56-6.13) K/mm3. Lymph # (Auto) (1.18-3.74) K/mm3. [place] # (Auto) (0.24-0.36) K/mm3. Eos # (Auto) (0.04-0.36) K/mm3. Baso # (Auto) (0.01-0.08) K/mm3. AST (15-37) U/L. ALT (14-59) U/L. Ur Random Creatinine 163.6 H (30.0-125.0) mg/dL. U Random Total Protein 45.9 H (0.0-11.8) mg/dL. Protein/Creatinin Ratio 280.6 H (0-149) mg/g. SARS-CoV-2 RNA (CARL) (NEGATIVE). Med Orders - Current: Current Medications. Diphenhydramine HCl (Diphenhydramine 50 Mg/Ml Sdv) 25 mg IVPUSH Q6H PRN. PRN Reason: pruritis. Ephedrine Sulfate (Ephedrine 50 Mg/Ml Sdv) 5 mg IVPUSH ASDIRECTED PRN. PRN Reason: Hypotension. Fentanyl (Fentanyl 100 Mcg/2 Ml Sdv) 100 mcg EPIDUR Q3H PRN. PRN Reason: Pain. Fentanyl/Bupivacaine HCl (Bupivacaine/Fentanyl/Ns 100 Ml Bag) 100 ml EPIDUR ASDIRECTED PRN. PRN Reason: Pain. Lactated Ringer's (Ringers, Lactated) 1,000 mls @ 100 mls/hr IV ASDIRECTED ANMOL. Last Admin: 01/25/21 12:43 Dose: 100 mls/hr. Documented by: Oxytocin/Lactated Ringer's (Pitocin In Lr 10 Units/1,000 Ml) 10 unit in 1,000 mls @ 500 mls/hr IV .CONTINUOUS ANMOL. Oxytocin/Lactated Ringer's (Pitocin In Lr 10 Units/1,000 Ml) 10 unit in 1,000 mls @ 12 mls/hr IV TITRATE ANMOL; Protocol. Last Titration: 01/25/21 12:32 Dose: 14 munits/min, 84 mls/hr. Documented by: Oxytocin/Lactated Ringer's (Pitocin In Lr 10 Units/1,000 Ml) 10 unit in 1,000 mls @ 12 mls/hr IV TITRATE ANMOL; Protocol. Nalbuphine HCl (Nalbuphine 10 Mg/1 Ml Vial) 10 mg IVPUSH Q2H PRN. PRN Reason: Pain. Ondansetron HCl (Ondansetron 4 Mg/2 Ml Sdv) 4 mg IVPUSH Q4H PRN. PRN Reason: Nausea/Vomiting. Sodium Chloride (Sodium Chloride 0.9% 10 Ml Syringe) 10 ml FLUSH ASDIRECTED PRN. PRN Reason: Keep Vein Open. Discontinued Medications. Lidocaine HCl (Lidocaine 1% 50 Ml Mdv) Confirm Administered Dose 50 ml .ROUTE .STK-MED ONE. Stop: 01/25/21 08:48. Terbutaline Sulfate (Terbutaline 1 Mg/Ml Sdv) 0.25 mg SUBCUT ONETIME ONE. Stop: 01/25/21 07:14. Last Admin: 01/25/21 07:38 Dose: 0.25 mg. Documented by: Terbutaline Sulfate (Terbutaline 1 Mg/Ml Sdv) Confirm Administered Dose 1 mg .ROUTE .STK-MED ONE. Stop: 01/25/21 07:13. Last Admin: 01/25/21 09:34 Dose: Not Given. Documented by: - Exam. GI/Abdominal Exam: Soft, Non-Tender. (Female) Exam: Normal External Exam. Extremities: Normal Inspection, Normal Range of Motion, Non-Tender, No Pedal Edema, Normal Capillary Refill. Skin: Warm, Dry, Intact. Neurological: No New Focal Deficit. Psy/Mental Status: Alert, Normal Affect, Normal Mood. - Problem List & Annotations. (1) 39 weeks gestation of . SNOMED Code(s): 93159394. Code(s): Z3A.39 - 39 WEEKS GESTATION OF Status: Acute Current Visit: Yes. (2) Normal delivery at term. SNOMED Code(s): 62107051. Code(s): O80 - ENCOUNTER FOR FULL-TERM UNCOMPLICATED DELIVERY Status: Acute Current Visit: Yes. - Problem List Review. Problem List Initiated/Reviewed/Updated: No. - Plan. Plan:: Patient seen and examined by me and discussed with student. Diagnosis: Stroke: No - Discharge Data Discharge Date: 01/26/21 Discharge Disposition: Home, Self-Care 01 Condition: Good - Referral to Home Health Primary Care Physician: Lashell Puente MD - Discharge Diagnosis/Problem(s) (1) 39 weeks gestation of SNOMED Code(s): 45451284 ICD Code: Z3A.39 - 39 WEEKS GESTATION OF Status: Acute Current Visit: Yes (2) Normal delivery at term SNOMED Code(s): 43893111 ICD Code: O80 - ENCOUNTER FOR FULL-TERM UNCOMPLICATED DELIVERY Status: Acute Current Visit: Yes (3) Elevated blood pressure affecting in third trimester, antepartum SNOMED Code(s): 22917272, 11078154, 211911813 ICD Code: O16.3 - UNSPECIFIED MATERNAL HYPERTENSION, THIRD TRIMESTER Status: Acute Current Visit: Yes - Patient Summary/Data Complications: None Consults: None Hospital Course: Uneventful - Patient Instructions Diet: Usual Diet as Tolerated Driving: Do Not Drive (x48 hours) Showering/Bathing: May Shower Notify Provider of: Fever, Increased Pain, Swelling and Redness, Drainage, Nausea and/or Vomiting - Discharge Plan *PRESCRIPTION DRUG MONITORING PROGRAM REVIEWED*: Not Applicable *COPY OF PRESCRIPTION DRUG MONITORING REPORT IN PATIENT SARAHI: Not Applicable Referrals: Lynda Mace MD [Physician] - (Pt will call to make appointment) - Discharge Summary/Plan Comment DC Time >30 min.: No - Patient Data Vitals - Most Recent: Last Vital Signs Temp 97.5 F 01/26/21 08:50 Pulse 69 01/26/21 08:50 Resp 14 01/26/21 08:50 BP 127/83 01/26/21 08:50 Pulse Ox 95 01/26/21 08:50 Weight - Most Recent: 211 lb I&O - Last 24 hours: Intake & Output 01/25/21 01/26/21 01/26/21 22:59 06:59 14:59 Intake Total 640 360 Balance 640 360 Lab Results - Last 24 hrs: Laboratory Results - last 24 hr 01/26/21 Range/Units 05:23 WBC 8.31 (3.98-10.04) K/mm3 RBC 3.85 L (3.98-5.22) M/mm3 Hgb 10.2 L (11.2-15.7) gm/dl Hct 31.8 L (34.1-44.9) % MCV 82.6 (79.4-94.8) fl MCH 26.5 (25.6-32.2) pg MCHC 32.1 L (32.2-35.5) g/dl RDW Std Deviation 44.4 (36.4-46.3) fL Plt Count 193 (182-369) K/mm3 MPV 11.1 (9.4-12.3) fl Neut % (Auto) 71.9 H (34.0-71.1) % Lymph % (Auto) 21.8 (19.3-51.7) % [place] % (Auto) 5.5 (4.7-12.5) % Eos % (Auto) 0.6 L (0.7-5.8) Baso % (Auto) 0.1 (0.1-1.2) % Neut # (Auto) 5.97 (1.56-6.13) K/mm3 Lymph # (Auto) 1.81 (1.18-3.74) K/mm3 [place] # (Auto) 0.46 H (0.24-0.36) K/mm3 Eos # (Auto) 0.05 (0.04-0.36) K/mm3 Baso # (Auto) 0.01 (0.01-0.08) K/mm3 Med Orders - Current: Current Medications Acetaminophen (Acetaminophen 325 Mg Tab) 650 mg PO Q4H PRN PRN Reason: mild pain or fever Benzocaine/Menthol (Benzocaine/Menthol 20%-0.5% [place] 56 Gm Canister) 0 gm TOP ASDIRECTED PRN PRN Reason: Perineal Comfort Measure Last Admin: 01/25/21 15:00 Dose: 1 can Documented by: Ibuprofen (Ibuprofen 600 Mg Tab) 600 mg PO Q4H PRN PRN Reason: Mild pain or fever Last Admin: 01/26/21 05:13 Dose: 600 mg Documented by: Simethicone (Simethicone 80 Mg Tab.Chew) 80 mg PO Q4H PRN PRN Reason: Gas Witch Beckie (Witch Beckie Medicated Pads 40/Jar) 1 pad TOP ASDIRECTED PRN PRN Reason: Perineal Comfort Measure Last Admin: 01/25/21 14:59 Dose: 1 tube Documented by: Discontinued Medications Diphenhydramine HCl (Diphenhydramine 50 Mg/Ml Sdv) 25 mg IVPUSH Q6H PRN PRN Reason: pruritis Ephedrine Sulfate (Ephedrine 50 Mg/Ml Sdv) 5 mg IVPUSH ASDIRECTED PRN PRN Reason: Hypotension Fentanyl (Fentanyl 100 Mcg/2 Ml Sdv) 100 mcg EPIDUR Q3H PRN PRN Reason: Pain Fentanyl/Bupivacaine HCl (Bupivacaine/Fentanyl/Ns 100 Ml Bag) 100 ml EPIDUR ASDIRECTED PRN PRN Reason: Pain Lactated Ringer's (Ringers, Lactated) 1,000 mls @ 100 mls/hr IV ASDIRECTED ANMOL Last Admin: 01/25/21 12:43 Dose: 100 mls/hr Documented by: Oxytocin/Lactated Ringer's (Pitocin In Lr 10 Units/1,000 Ml) 10 unit in 1,000 mls @ 500 mls/hr IV .CONTINUOUS ANMOL Oxytocin/Lactated Ringer's (Pitocin In Lr 10 Units/1,000 Ml) 10 unit in 1,000 mls @ 12 mls/hr IV TITRATE ANMOL; Protocol Last Titration: 01/25/21 12:32 Dose: 14 munits/min, 84 mls/hr Documented by: Oxytocin/Lactated Ringer's (Pitocin In Lr 10 Units/1,000 Ml) 10 unit in 1,000 mls @ 12 mls/hr IV TITRATE ANMOL; Protocol Lidocaine HCl (Lidocaine 1% 50 Ml Mdv) Confirm Administered Dose 50 ml .ROUTE .STK-MED ONE Stop: 01/25/21 08:48 Last Admin: 01/25/21 18:00 Dose: Not Given Documented by: Nalbuphine HCl (Nalbuphine 10 Mg/1 Ml Vial) 10 mg IVPUSH Q2H PRN PRN Reason: Pain Ondansetron HCl (Ondansetron 4 Mg/2 Ml Sdv) 4 mg IVPUSH Q4H PRN PRN Reason: Nausea/Vomiting Sodium Chloride (Sodium Chloride 0.9% 10 Ml Syringe) 10 ml FLUSH ASDIRECTED PRN PRN Reason: Keep Vein Open Terbutaline Sulfate (Terbutaline 1 Mg/Ml Sdv) 0.25 mg SUBCUT ONETIME ONE Stop: 01/25/21 07:14 Last Admin: 01/25/21 07:38 Dose: 0.25 mg Documented by: Terbutaline Sulfate (Terbutaline 1 Mg/Ml Sdv) Confirm Administered Dose 1 mg .ROUTE .STChirp Interactive-MED ONE Stop: 01/25/21 07:13 Last Admin: 01/25/21 09:34 Dose: Not Given Documented by:
== END 2021-01-26 14:45 | disposition home or self-care (01) | DRG 807 ==
LOC: JD.OBCHECK 00:06 → JD.OB 00:12 → JD.OBCHECK 03:07 → JD.MS 03:07 → JD.OB 06:51 → OBSVTOIN 13:10 → JD.OB 13:11
PROVIDERS: ADMIT Obstetrics & Gynecology; ATTEND Obstetrics & Gynecology
PROC: 10E0XZZ Delivery of Products of Conception, External Approach (ICD-10-PCS; principal; 2021-01-25)
PROC: 10907ZC Drainage of Amniotic Fluid, Therapeutic from Products of Conception, Via Natural or Artificial Opening (ICD-10-PCS; 2021-01-25)
DX: O32.1XX0 Maternal care for breech presentation, not applicable or unspecified (principal); Z37.0 Single live birth; Z3A.39 39 weeks gestation of pregnancy; O13.4 Gestational [pregnancy-induced] hypertension without significant proteinuria, complicating childbirth; Z20.822 Contact with and (suspected) exposure to COVID-19
CPT/HCPCS: 36415; 59025; 59409; 59412; 82570; 84156; 84450; 84460; 85025; 86592; A9270-GY; J2590; J3105; J7120; U0002